=== PATIENT | female | born 1985 | race African-American/Black ===

== ENCOUNTER 2016-07-30 21:35 | Emergency (ER) | payer MEDICAID ==
[~2016-07-30] VITALS: Ht 170.2 cm; Wt 104.8 kg
[~2016-07-30 21:35] MED LIST: ALBUTEROL SULF8.5 GM INH; BENADRYL25 MG ORAL; CLINDAMYCIN HC300 MG ORAL; IBUPROFEN600 MG ORAL; NKM
[2016-07-30 21:50] VITALS: BP 128/89
[2016-07-30] MEDS ORDERED: HYDROmorphone 1mg/ml Carpuject IM ONE (22:15)
--- NOTE | 2016-07-30 22:15 | Emergency Room Report ---
History of Present Illness General Chief Complaint: Back Pain-No Injury Source: Patient Present Illness HPI Is a 30-year-old female with no similar past medical history. She presents with chief complaint of lower back pain. Onset was this morning. She had back pain before but never this bad. She woke up with back pain. Localized to the right lower lumbar area. Pain radiating down her right leg. No incontinence of bowel or urine. No fever or chills. Worse with sitting. Worse with standing or walking. Only later her belly else with the pain. No trauma. Pain is 10 out of 10. No incontinence of bowel or urine. No anesthesia. [id number] medication not helping. Allergies: Uncoded Allergies: SHELL FISH (Allergy, Unknown, 12/09/14) Patient History Past Medical History: see triage record, old chart reviewed Past Surgical History: other Pertinent Family History: none Social History: Denies: drug use Last Menstrual Period: 2 weeks ago Now: No Immunizations: other Reviewed Nursing Documentation: PMH: Agreed, PSxH: Agreed Nursing Documentation-PM Past Medical History: No Stated History Review of Systems Eye: Denies: blurred vision, eye pain ENT: Denies: ear pain, nose congestion, throat swelling Respiratory: Denies: cough, shortness of breath Cardiovascular: Denies: chest pain, palpitations Gastrointestinal: Denies: abdominal pain, diarrhea, nausea, vomiting Musculoskeletal: Reports: back pain, Denies: joint pain Skin: Denies: rash Neurological: Denies: headache, numbness Endocrine: Denies: increased thirst, increased urine Hematologic/Lymphatic: Denies: easy bruising All Other Systems: negative except mentioned in HPI Physical Exam Vital Signs Date Time Temp Pulse Resp B/P Pulse Ox O2 Delivery O2 Flow Rate FiO2 07/30/16 21:40 98.1 94 16 131/90 96 Room Air vitals normal Sp02 EP Interpretation: reviewed, normal General Appearance: well appearing, alert, moderate distress - From pain, obese Head: normocephalic, atraumatic Eyes: bilateral eye EOMI, bilateral eye PERRL ENT: hearing grossly normal, normal pharynx Neck: full range of motion, supple, no meningismus Respiratory: chest non-tender, lungs clear, normal breath sounds Cardiovascular #1: regular rate, rhythm, no murmur Gastrointestinal: normal bowel sounds, non tender, no mass, no organomegaly, no bruit, non-distended Musculoskeletal: normal range of motion, other - Tender to palpation over the right . Most her pain is paraspinous muscle Neurologic: alert, oriented x3 Psychiatric: mood/affect normal Skin: warm/dry Medical Decision Making Diagnostic Impression: Primary Impression: Herniated lumbar intervertebral disc Additional Impressions: Sciatica of right side Drug abuse ER Course Patient presents with back pain consistent with degenerative changes with sciatica. No evidence of cauda equina syndrome, spinal epidural abscess or neoplastic process. She does admit to drug abuse. We'll discharge home. CT/MRI/US Diagnostic Results CT/MRI/US Diagnostic Results : Imaging Test Ordered: CT lumbar spine Impression Read by radiologist. Disc herniation suspected at multiple levels most prominently at L4-L5. Last Vital Signs Date Time Temp Pulse Resp B/P Pulse Ox O2 Delivery O2 Flow Rate FiO2 07/30/16 21:40 98.1 94 16 131/90 96 Room Air Status: improved Disposition: HOME, SELF-CARE Condition: Stable Scripts Ibuprofen* (MOTRIN*) 600 Mg Tablet 600 MG ORAL THREE TIMES A DAY, #30 TAB 0 Refills Prov: LEODAN RODRIGEZ M.D. 07/30/16 Hydrocodone/Acetaminophen 5-325* (HYDROCODONE/ACETAMINOPHEN 5-325*) 1 Each Tablet 1 TAB ORAL Q6H Y for For Pain, #20 TAB 0 Refills Prov: LEODAN RODRIGEZ M.D. 07/30/16 Patient Instructions: Sciatica Additional Instructions: Abstain from drugs. Go to rehabilitation. Followup with your Dr. in 2-3 days. Return if worse. No heavy lifting. LEODAN RODRIGEZ M.D. Jul 30, 2016 22:15
[2016-07-30 22:25] LABS: APPEARANCE,URINE SLIGHTLY CLOUDY; KETONES,URINE NEGATIVE (NEGATIVE); LEUKOCYTE ESTERASE ,URINE 3+ (NEGATIVE); NITRITE,URINE NEGATIVE (NEGATIVE); PH,URINE 5 (4.5-8.0); PROTEIN,URINE 1+ (NEGATIVE); UROBILINOGEN,URINE 1 MG/DL (0.0-1.0)
[2016-07-30] MEDS ORDERED: HYDROmorphone 1mg/ml Carpuject IVP ONE (22:30)
[2016-07-30] MEDS ORDERED: Ketorolac 30mg Inj IV ONE (22:30)
[2016-07-30 22:34] LABS: WBC,URINE 15-20 /HPF (0 - 2)
[2016-07-30 22:35] LABS: BACTERIA,URINE FEW /HPF; MUCUS,URINE MANY /LPF (NONE/OCC); SQUAMOUS EPITHELIAL CELL,UR FEW /LPF (NONE/OCC)
[2016-07-30] MEDS ORDERED: IBUPROFEN600 MG ORAL (23:34)
[2016-07-30] MEDS ORDERED: HYDROCODON-ACE1 EA15 ORAL (23:34)
[2016-07-30 23:45] VITALS: BP 125/84
--- NOTE | 2016-07-31 09:07 | Diagnostic Imaging Report ---
Indication: Back pain Technique: CT lumbar was performed utilizing automated exposure control without intravenous contrast material. Axial and coronal images were generated. CT dose: Total DLP 807 mGycm; CTDI vol 30.5 mGy Comparison: None Findings: There is no acute fracture. The lumbar alignment is within normal limits. Bone mineralization is normal. There is a questionable mild disc bulge at L4/L5. There is minimal degenerative facet arthropathy at L4/L5. Impression: No acute osseous abnormality. Questionable mild disc bulge at L4/L5. Further evaluation with MRI recommended as indicated. The CT scanner at [facility] is accredited by the [employer] and the scans are performed using protocols designed to limit radiation exposure to as low as reasonably achievable to attain images of sufficient resolution adequate for diagnostic evaluation.
== END 2016-07-30 23:45 | disposition home or self-care (01) ==
LOC: EMR 23:31
DX: M51.16 Intervertebral disc disorders with radiculopathy, lumbar region (principal); Z91.013 Allergy to seafood
CPT/HCPCS: 72131; 80300; 81003; 81025; 87086; 96372; 96374; 96375; 99284; J1170; J1885

== ENCOUNTER 2017-09-21 15:10 | Emergency (ER) | payer SELFPAY ==
[~2017-09-21] VITALS: Ht 170.2 cm; Wt 108.9 kg
[~2017-09-21 15:10] MED LIST changes: +HYDROCODON-ACE1 EA15 ORAL
--- NOTE | 2017-09-21 15:44 | Emergency Room Report ---
History of Present Illness General Chief Complaint: Earache Source: Patient Present Illness HPI 31-year-old female presents emergency department complaining of 10 out of 10 in severity right ear pain 2 days in addition to exacerbation of her chronic back pain 2 weeks. Patient denies trauma or fall. She denies nausea, vomiting, fevers, chills, ear discharge, tinnitus or trauma to the ear. Patient denies changes in hearing. Denies abdominal pain, urinary urgency, frequency or dysuria. Allergies: Uncoded Allergies: SHELL FISH (Allergy, Unknown, 12/09/14) Patient History Past Medical History: see triage record Past Surgical History: none Pertinent Family History: none Last Menstrual Period: 08/25/17 Now: No : 3 Para: 1 Reviewed Nursing Documentation: PMH: Agreed; PSxH: Agreed Nursing Documentation-PMH Past Medical History: No Stated History Review of Systems All Other Systems: negative except mentioned in HPI Physical Exam Vital Signs Date Time Temp Pulse Resp B/P (MAP) Pulse Ox O2 Delivery O2 Flow Rate FiO2 09/21/17 15:29 98.1 94 18 160/112 95 Room Air 98.1 Medical Decision Making PA Attestation Dr. Hills is my supervising Physician whom patient management has been discussed with. Diagnostic Impression: Primary Impression: Otitis media Qualified Codes: H65.191 - Other acute nonsuppurative otitis media, right ear Additional Impression: Lumbago with sciatica, right side Qualified Codes: M54.41 - Lumbago with sciatica, right side; G89.29 - Other chronic pain ER Course 31-year-old female presents emergency department complaining of 10 out of 10 in severity right ear pain 2 days in addition to exacerbation of her sciatica pain 2 weeks. Patient denies trauma or fall. She denies nausea, vomiting, fevers, chills, ear discharge, tinnitus or trauma to the ear. Patient denies changes in hearing. Denies abdominal pain, urinary urgency, frequency or dysuria. denies urinary or bowel incontinence. Denies saddle anesthesia, recent lumbar procedures or hx of cancer. Ddx considered but are not limited to OM, OE, mastoiditis, TM perforation, FB, sciatica exacerbation, drug seeking behavior-hx of drug abuse reported at last ED visit. Vital signs: are WNL, pt. is afebrile H&PE are most consistent with otitis media, exacerbation of chronic low back pain ORDERS: none required at this time, the diagnosis is clinical -OTOSCOPY: Right TM is erythematous and bulging, no external tenderness , left TM is WNL ED INTERVENTIONS: -Tylenol PO Patient was requesting a bed and after being signed to fast track chairs patient became upset and Laying down on ED floor. Patient refuses multiple requests to move. Security present. d/w pt. conservative treatment, and to follow up with a primary care provider. pt given a list of primary care clinics for follow up. d/w pt. to return to the ED with worsening or new symptoms. Discussed with patient that she will be provided with Tylenol for her pain and needs to follow-up with her primary care provider for prescription of controlled substances as no acute injury is noted, and hx of drug abuse. Upon discharge patient was requesting a taxi voucher. Patient ambulated into the ED. I asked the patient how she arrived at the hospital and she reports that she walked from her house. d/w pt. d/c paperwork allows free bus rides. DISCHARGE: At this time pt. is stable for d/c to home. With PO ABX. Will provide printed patient care instructions, and any necessary prescriptions. Care plan and follow up instructions have been discussed with the patient prior to discharge. Last Vital Signs Date Time Temp Pulse Resp B/P (MAP) Pulse Ox O2 Delivery O2 Flow Rate FiO2 09/21/17 15:29 98.1 94 18 160/112 95 Room Air 98.1 Disposition: HOME, SELF-CARE Condition: Stable Scripts Acetaminophen* (TYLENOL EXTRA STRENGTH*) 500 Mg Tablet 500 MG ORAL Q6H, #20 TAB 0 Refills Prov: Katherine August 09/21/17 Amoxicillin/Potassium Clav 875-125* (AUGMENTIN 875-125 TABLET*) 1 Each Tablet 1 TAB ORAL TWICE A DAY for 7 Days, #14 TAB Prov: Katherine August 09/21/17 Patient Instructions: Medical Screening Exam, Otitis Media, Adult, [id number] Additional Instructions: Take medications as directed. Follow up with a Primary Care Provider in 3-5 days, even if your symptoms have resolved. --Please review list of primary care clinics, if you do not already have a primary care provider Return sooner to ED if new symptoms occur, or current symptoms become worse. - Please note that this Emergency Department Report was dictated using [employer] care secretary technology software, occasionally this can lead to erroneous entry secondary to interpretation by the dictation equipment. Katherine August Sep 21, 2017 15:44
[2017-09-21] MEDS ORDERED: AUGMENTIN 875-1 EAC1 ORAL (15:45)
[2017-09-21] MEDS ORDERED: TYLENOL EXTRA500 MG ORAL (15:45)
[2017-09-21 16:01] VITALS: BP 160/112
== END 2017-09-21 16:01 | disposition home or self-care (01) ==
LOC: EMR 15:48
DX: H65.191 Other acute nonsuppurative otitis media, right ear (principal); M54.41 Lumbago with sciatica, right side; Z91.013 Allergy to seafood
CPT/HCPCS: 99283